=== PATIENT | female | born 1990 | race Caucasian/White ===

== ENCOUNTER 2018-07-20 21:20 | Inpatient (IN) | payer OTHER ==
[~2018-07-20] VITALS: Ht 154.9 cm; Wt 63.0 kg
[2018-07-20 21:45] VITALS: BP 103/67
[2018-07-20] MEDS ORDERED: NALBUPHINE 10 MG/ML AMP IVP PRN (22:00)
[2018-07-20] MEDS ORDERED: AMPICILLIN 2,000 MG in NACL 0.9% MINI-BAG PLUS 100 ML IV SCH (22:00)
[2018-07-20] MEDS ORDERED: PROMETHAZINE 25 MG/ML VIAL IVP PRN (22:00)
[2018-07-20] MEDS ORDERED: OXYTOCIN 20 UNITS in LACTATED RINGERS 1,000 ML IV SCH (22:15)
[2018-07-20] MEDS ORDERED: PREN-380 PO (22:16)
[2018-07-20] MEDS ORDERED: OXYTOCIN 10 UNITS/ML VIAL IM SCH (22:30)
[2018-07-20] MEDS ORDERED: LACTATED RINGERS 500 ML IV SCH (22:30)
[2018-07-20 22:57] LABS: BASOPHILS % (AUTO) 0.1 % (0.0-2.0); EOSINOPHILS % (AUTO) 0.2 % (0.0-4.0); HEMATOCRIT 35.5 % (36-48); HEMOGLOBIN 12.4 g/dL (12.0-16.0); LYMPHOCYTES # (AUTO) 3.2 K/uL (2.5-16.5); LYMPHOCYTES % (AUTO) 25.4 % (20.5-51.1); MEAN CORPUSCULAR HEMOGLOBIN 33 pg (27-31); MEAN CORPUSCULAR HGB CONC 35 g/dL (33-37); MONOCYTES # (AUTO) 0.7 K/uL (0.8-1.0); MONOCYTES % (AUTO) 5.8 % (1.7-9.3); NEUTROPHILS # (AUTO) 8.7 K/uL (1.8-7.7); NEUTROPHILS % (AUTO) 68.5 % (42.2-75.2); PLATELET COUNT (AUTO) 263 K/uL (140-450); RED BLOOD CELL COUNT(AUTO) 3.81 MIL/uL (4.20-5.40); RED CELL DISTRIBUTION WIDTH 12.8 % (11.6-13.7); WHITE BLOOD COUNT (AUTO) 12.6 K/uL (4.8-10.8)
[2018-07-20 22:58] LABS: APPEARANCE,URINE SL CLOUDY (CLEAR); BILIRUBIN,URINE NEGATIVE (NEGATIVE); BLOOD, URINE NEGATIVE (NEGATIVE); COLOR,URINE YELLOW (YELLOW); LEUKOCYTE ESTERASE ,URINE 1+ (NEGATIVE); NITRITE, URINE NEGATIVE (NEGATIVE); UGLUCOSE NEGATIVE (NEGATIVE)
[2018-07-20 23:03] LABS: BARBITURATE, URINE NEG. ng/ml (NEG <=200); BENZODIAZEPINE, URINE NEG. ng/mL (NEG <=200); CANNABINOID, URINE NEG. ng/mL (NEG <=50); COCAINE, URINE NEG. ng/mL (NEG <=300); OPIATE, URINE NEG. ng/mL (NEG <=2000); PHENCYCLIDINE SCREEN,URINE NEG. ng/mL (NEG <=25)
[2018-07-20 23:11] LABS: RBC,URINE 0-5 (RARE) /HPF (0-5)
[2018-07-20 23:12] LABS: CALCIUM OXALATE CRYSTALS,UR 0-10 /HPF (None Seen)
[2018-07-20] MEDS: LACTATED RINGERS 1,000 ML IV SCH (23:16)
[2018-07-20] MEDS ORDERED: AMPICILLIN 2,000 MG VIAL ONE (23:23)
[2018-07-20] MEDS ORDERED: OXYTOCIN 20 UNITS/LR PREMIX 1,000 ML IV ONE (23:24)
[2018-07-21] MEDS: AMPICILLIN 1,000 MG in NACL 0.9% MINI-BAG PLUS 50 ML IV SCH ×2 (03:04→07:02)
[2018-07-21] MEDS ORDERED: AMPICILLIN 1,000 MG VIAL ONE ×4 (03:04→16:16)
[2018-07-21] MEDS ORDERED: NALBUPHINE 10 MG/ML AMP ONE (06:08)
[2018-07-21] MEDS ORDERED: PROMETHAZINE 25 MG/ML VIAL ONE (06:08)
--- NOTE | 2018-07-21 09:10 | NUR ---
PATIENT HAS BEEN SCREENED AND CATEGORIZED LOW NUTRITION RISK. PATIENT WILL BE SEEN WITHIN 7 DAYS OF ADMISSION. 07/27/[address]
[2018-07-21] MEDS ORDERED: BUPIVACAINE 0.125%/NS PREMIX 250 ML ONE (13:14)
[2018-07-21] MEDS: LACTATED RINGERS 1,000 ML IV SCH ×2 (13:25→14:57)
[2018-07-21] MEDS ORDERED: OXYTOCIN 10 UNITS/ML VIAL ONE (19:26)
[2018-07-21] MEDS ORDERED: OXYTOCIN 20 UNITS/LR PREMIX 1,000 ML IV ONE (20:04)
[2018-07-21] MEDS ORDERED: OXYTOCIN 10 UNITS/ML VIAL IM PRN (20:50)
[2018-07-21] MEDS ORDERED: BENZOCAINE/MENTHOL 20%-0.5% 60 GM CAN TP PRN (20:50)
[2018-07-21] MEDS ORDERED: TEMAZEPAM 15 MG CAP PO PRN (20:50)
[2018-07-21] MEDS ORDERED: oxyCODONE/APAP 5/325 MG 1 TAB TAB PO PRN (20:50)
[2018-07-21] MEDS ORDERED: METHYLERGONOVINE 0.2 MG/ML AMP IM PRN (20:50)
[2018-07-21] MEDS ORDERED: MEASLES, MUMPS, AND RUBELLA 1 VIAL SQVAC PRN (20:50)
[2018-07-21] MEDS ORDERED: DOCUSATE SOD/SENNA 50/8.6 MG 1 TAB PO SCH (21:00)
[2018-07-21] MEDS: IBUPROFEN 800 MG TAB PO PRN (23:03)
[2018-07-22] MEDS: IBUPROFEN 800 MG TAB PO PRN (06:42)
[2018-07-22] MEDS: HYDROcodone/APAP 5/325 MG 1 TAB TAB PO PRN (10:46)
[2018-07-22 11:05] LABS: HEMATOCRIT 32.7 % (36-48); HEMOGLOBIN 11.4 g/dL (12.0-16.0)
[2018-07-23] MEDS: HYDROcodone/APAP 5/325 MG 1 TAB TAB PO PRN (04:25)
[2018-07-23] MEDS: IBUPROFEN 800 MG TAB PO PRN (11:04)
== END 2018-07-23 15:30 | disposition home or self-care (01) | DRG 560 ==
LOC: MLD 21:20 → MFCC 07-21 23:00
PROVIDERS: ADMIT Obstetrics & Gynecology; ATTEND Obstetrics & Gynecology
PROC: 10E0XZZ Delivery of Products of Conception, External Approach (ICD-10-PCS; principal; 2018-07-21)
PROC: 10907ZC Drainage of Amniotic Fluid, Therapeutic from Products of Conception, Via Natural or Artificial Opening (ICD-10-PCS; 2018-07-21)
PROC: 3E0R3BZ Introduction of Anesthetic Agent into Spinal Canal, Percutaneous Approach (ICD-10-PCS; 2018-07-21)
PROC: 00HU33Z Insertion of Infusion Device into Spinal Canal, Percutaneous Approach (ICD-10-PCS; 2018-07-21)
PROC: 3E0234Z Introduction of Serum, Toxoid and Vaccine into Muscle, Percutaneous Approach (ICD-10-PCS; 2018-07-21)
PROC: 0HQ9XZZ Repair Perineum Skin, External Approach (ICD-10-PCS; 2018-07-21)
DX: O70.0 First degree perineal laceration during delivery (principal); Z23 Encounter for immunization; Z37.0 Single live birth; Z3A.40 40 weeks gestation of pregnancy
CPT/HCPCS: 36415; 51702; 59409; 80305; 81001; 85018; 85025; 86592; 86886; 86900; 86901; 87086; 87653-90; 90715; J0290; J2300; J2550; J2590; J3490; J7120